=== PATIENT | male | born 1960 | race Caucasian/White ===

== ENCOUNTER 2017-09-13 16:42 | Emergency (ER) | payer SELFPAY ==
[~2017-09-13] VITALS: Ht 167.6 cm; Wt 74.0 kg
[2017-09-13] MEDS ORDERED: HYDROCODONE/APAP 7.5/325MG 1 TAB TABLET PO ONE (22:15)
[2017-09-13 22:29] LABS: BASOPHILS % 0.6 % (0.0-2.0); EOSINOPHILS % 0.3 % (0.0-5.0); HEMOGLOBIN. 14.3 g/dL (14.0-18.0); LYMPHOCYTES % 28.6 % (20.0-50.0); MEAN CORPUSCULAR VOLUME 85.2 fL (80.0-94.0); MEAN PLATELET VOLUME 7.1 fl (7.4-10.4); MONOCYTES % 5.8 % (2.0-8.0); NEUTROPHILS % 64.7 % (40.0-76.0); PLATELET 313 x1000/uL (130-400); RED BLOOD CELL COUNT 4.92 mill/uL (4.7-6.1); RED CELL DISTRIBUTION WIDTH 14.3 % (11.6-14.6)
[2017-09-13 22:33] LABS: CHLORIDE 107 mEq/L (98-107)
[2017-09-13 22:35] LABS: PROTHROMBIN TIME 10.8 sec (9.4-11.6)
[2017-09-13 22:51] LABS: CLARITY URINE CLEAR (CLEAR); COLOR URINE YELLOW (YELLOW); KETONES URINE 2+ (NEGATIVE); LEUKOCYTE ESTERASE URINE NEGATIVE (NEGATIVE); NITRITE URINE NEGATIVE (NEGATIVE); OCCULT BLOOD URINE NEGATIVE (NEGATIVE); PH URINE 5.5 (4.5-8.0); PROTEIN URINE NEGATIVE (NEGATIVE); SPECIFIC GRAVITY URINE 1.034 (1.005-1.030)
[2017-09-14 01:57] VITALS: BP 135/89
[2017-09-14] MEDS ORDERED: LIDOCAINE HCL 1% 20ML VIAL (Pyxis) INJ INFIL ONE (02:00)
[2017-09-14] MEDS ORDERED: CEFTRIAXONE SODIUM 250 MG/VIAL IM ONE (02:00)
== END 2017-09-14 03:06 | disposition home or self-care (01) ==
LOC: ER 16:46
DX: N45.1 Epididymitis (principal)
CPT/HCPCS: 36415; 76870; 80048; 81003; 85025; 85610; 93976; 96372; 99285; J0696; J3490; Z7610